=== PATIENT | female | born 1950 ===

== ENCOUNTER 2021-02-22 06:48 | Day surgery (SDC) | payer OTHER ==
[~2021-02-22 06:48] MED LIST: COZAAR100 MG PO
== END 2021-02-22 15:50 | disposition home or self-care (01) ==
LOC: CIR.AMB 06:48
PROVIDERS: ATTEND Obstetrics & Gynecology
DX: N84.0 Polyp of corpus uteri (principal); Z20.822 Contact with and (suspected) exposure to COVID-19